=== PATIENT | male | born 1970 | race Caucasian/White ===

== ENCOUNTER → 2020-01-29 | Outpatient (CLI) | payer OTHER | LOC: PLD 07:47 → LAB SHORT 07:47 | DX: D22.71 Melanocytic nevi of right lower limb, including hip (principal) | CPT/HCPCS: 88305 ==

== ENCOUNTER 2024-03-17 09:01 | Day surgery (SDC) | payer OTHER ==
[~2024-03-17] VITALS: Ht 172.7 cm; Wt 80.0 kg
[2024-03-17] MEDS ORDERED: ALLEGRA ALLERGY60 MG (09:49)
[2024-03-17] MEDS ORDERED: SILD25T (09:49)
[2024-03-17] MEDS ORDERED: Crestor40 MG (09:49)
[2024-03-17] MEDS ORDERED: IBUP200 (10:00)
[2024-03-17] MEDS ORDERED: Lactated Ringer's 1,000 ML IV ONE ×2 (10:17→10:58)
[2024-03-17] MEDS ORDERED: propofoL 50 ML IV ONE (10:58)
[2024-03-17 11:54] VITALS: BP 104/69
== END 2024-03-17 11:51 | disposition home or self-care (01) ==
LOC: ORSCSDS 09:01
PROVIDERS: Surgery
PROC: 0DJD8ZZ Inspection of Lower Intestinal Tract, Via Natural or Artificial Opening Endoscopic (ICD-10-PCS; principal; 2024-03-17 10:30)
DX: Z12.11 Encounter for screening for malignant neoplasm of colon (principal); K57.30 Diverticulosis of large intestine without perforation or abscess without bleeding; E78.5 Hyperlipidemia, unspecified; F41.9 Anxiety disorder, unspecified; E66.3 Overweight; Z79.899 Other long term (current) drug therapy
CPT/HCPCS: J2704; J7120